=== PATIENT | female | born 1945 | race Caucasian/White ===

== ENCOUNTER → 2016-12-02 | Outpatient (CLI) | payer MEDICARE, BC ==
[2006-01-25 09:55] VITALS: TEMP 97.1
[~2016-12-02] MED LIST: AMOXICILLIN 8751 TAB PO; BISOPROLOL FUMARATE PO; CRESTOR5 MG PO; DIOVAN HCT 25 M1 TA1 PO; ELAVIL100 MG PO; GLUCOPHAGE500 MG/TAB PO; NIACIN500 MG PO; NORVASC 5MG5 MG/TAB PO; TRICOR145 MG PO; VITAMIN D32000 IU PO; ZYRTEC 10MG10 MG PO; fluticasone
== END ==
LOC: COL.RAD 08:56
DX: N39.0 Urinary tract infection, site not specified (principal); N30.20 Other chronic cystitis without hematuria; N28.1 Cyst of kidney, acquired; N13.30 Unspecified hydronephrosis

== ENCOUNTER → 2017-05-26 | Outpatient (CLI) | payer MEDICARE, BC ==
[2006-01-25 09:55] VITALS: TEMP 97.1
== END ==
LOC: MC.RAD 10:55
DX: Z12.31 Encounter for screening mammogram for malignant neoplasm of breast (principal)

== ENCOUNTER 2019-08-20 19:05 | Emergency (ER) | payer MEDICARE, BC ==
[~2019-08-20] VITALS: Ht 162.6 cm; Wt 68.2 kg
[2019-08-20 19:18] VITALS: TEMP 97.4
[2019-08-20 20:06] LABS: BASO # 0.1 (0.0-0.2); BASO % 0.7 % (0.0-2.0); EOS # 0.2 (0.0-0.7); EOS % 2.1 % (0-4.0); GRAN # 5.4 (1.4-6.5); GRAN % 71.9 % (42.2-75.2); HEMATOCRIT 40.4 % (37.0-47.0); HEMOGLOBIN 13.8 g/dl (12.5-16.0); LYMPH # 1.3 (1.2-3.4); LYMPH % 16.8 % (20.0-51.0); MEAN CELL VOLUME 85 fl (80.0-100.0); MEAN CORPUSCULAR HEMOGLOBIN 29 pg (27.0-31.0); MEAN CORPUSCULAR HGB CONC 34 g/dl (33.0-37.0); MEAN PLATELET VOLUME 10.8 fl (7.4-10.4); MONO # 0.6 (0.1-0.6); MONO % 7.8 % (1.7-9.3); PLATELET COUNT 250 K/mm3 (130-400); RED BLOOD COUNT 4.76 M/mm3 (4.10-5.30)
[2019-08-20 20:22] LABS: ALANINE AMINOTRANSFERASE 47 U/L (9-52); ALBUMIN 4.6 gm/dL (3.5-5.0); ALKALINE PHOSPHATASE 62 U/L (50-136); ANION GAP 13 mmol/L (7-16); AST,SGOT 44 U/L (15-37); BILIRUBIN,TOTAL 0.3 mg/dL (0.0-1.0); BLOOD UREA NITROGEN 25 mg/dL (7-17); CALCIUM 9.7 mg/dL (8.4-10.2); CARBON DIOXIDE 27 mmol/L (22-30); CHLORIDE 103 mmol/L (98-107); CREATININE, serum 0.95 (0.52-1.25); GLUCOSE 257 mg/dL (74-106); POTASSIUM 3.2 mmol/L (3.4-5.0); SODIUM 142 mmol/L (137-145); TOTAL PROTEIN 7.5 gm/dL (6.4-8.2)
[2019-08-20 20:28] LABS: C-REACTIVE PROTEIN < 0.5 mg/dL (0.0-0.9)
[2019-08-20] MEDS ORDERED: ZEBETA10 MG PO (20:42)
[2019-08-20] MEDS ORDERED: TRADJENTA5 MG PO (20:43)
[2019-08-20] MEDS ORDERED: BENICAR HCT 251 TAB PO (20:44)
[2019-08-20] MEDS ORDERED: GLUCOPHAGE XR500 M1 PO (20:44)
[2019-08-20 22:14] VITALS: BP 193/91
[2019-08-20 22:53] VITALS: PULSE 72
== END 2019-08-20 22:53 | disposition home or self-care (01) ==
LOC: COL.ER 19:05
PROVIDERS: Family Medicine
DX: K52.9 Noninfective gastroenteritis and colitis, unspecified (principal); R42 Dizziness and giddiness; E11.9 Type 2 diabetes mellitus without complications; I10 Essential (primary) hypertension; Z79.84 Long term (current) use of oral hypoglycemic drugs
CPT/HCPCS: J2405; J7030; J7120

== ENCOUNTER 2020-12-26 17:46 | Inpatient (IN) | payer MEDICARE, BC ==
[~2020-12-26] VITALS: Ht 162.6 cm; Wt 68.0 kg
[~2020-12-26 17:46] MED LIST changes: +BENICAR HCT 251 TAB PO; +GLUCOPHAGE XR500 M1 PO; +TRADJENTA5 MG PO; +ZEBETA10 MG PO
[2020-12-26 18:15] LABS: HEMATOCRIT 40.4 % (37.0-47.0); HEMOGLOBIN 14.1 g/dl (12.5-16.0); MEAN CELL VOLUME 84 fl (80.0-100.0); MEAN CORPUSCULAR HEMOGLOBIN 29 pg (27.0-31.0); MEAN CORPUSCULAR HGB CONC 35 g/dl (33.0-37.0); MEAN PLATELET VOLUME 10.5 fl (7.4-10.4); PLATELET COUNT 205 K/mm3 (130-400); RED BLOOD COUNT 4.81 M/mm3 (4.10-5.30); REDCELL DISTRIBUTION WIDTH-CV 13.1 % (11.5-14.5)
[2020-12-26 18:22] LABS: INR 1.3 (0.8-3.0); PROTHROMBIN TIME 14.8 SECONDS (9.7-12.8)
[2020-12-26 18:28] LABS: ALBUMIN 4.5 gm/dL (3.5-5.0); BILIRUBIN,TOTAL 0.8 mg/dL (0.0-1.0); C-REACTIVE PROTEIN 8.3 mg/dL (0.0-0.9); CALCIUM 9.8 mg/dL (8.4-10.2); CREATININE, serum 0.82 (0.52-1.25); POTASSIUM 3.3 mmol/L (3.4-5.0)
[2020-12-26 18:43] LABS: BAND 8 % (0-10); LYMPHOCYTE 4 % (20.0-51.0); NEUTROPHILS 80 % (42.0-75.2)
[2020-12-26 18:44] LABS: PLATELET ESTIMATE NORMAL (NORMAL)
[2020-12-26 19:55] LABS: COLLECTION METHOD CLEAN CATCH
[2020-12-26 20:22] LABS: MUCOUS Present /lpf; PH 5 (5-8); SQUAMOUS EPITHELIAL 0-2 /hpf; URINE APPEARANCE Hazy; URINE BACTERIA Rare /hpf; URINE BILIRUBIN Negative (NEGATIVE); URINE BLOOD 2+ (NEGATIVE); URINE COLOR Yellow; URINE GLUCOSE 3+ (NEGATIVE); URINE KETONE Trace (NEGATIVE); URINE LEUKOCYTE ESTERASE Negative (NEGATIVE); URINE NITRATE Negative (NEGATIVE); URINE PROTEIN(semi-quant) 3+ (NEGATIVE); URINE UROBILINOGEN Negative (NEGATIVE)
[2020-12-26] MEDS ORDERED: VITAMIN D31000 I1 PO (22:31)
[2020-12-26] MEDS ORDERED: OMEGA-3 1000 MG1 CAP PO (22:31)
[2020-12-26] MEDS ORDERED: VITAMIN FLUSH-F1 CAP PO (22:32)
[2020-12-26 22:59] VITALS: BP 117/70; PULSE 74; TEMP 99
[2020-12-27] VITALS (9 sets, daily range): BP systolic 156–190; BP diastolic 54–84; PULSE 79–103; TEMP 99.8–103
--- NOTE | 2020-12-27 03:38 | NUR ---
Pt came last night accompanied by her son. Pt came pneumonia and it seems like she is more confused then when she got on the floor. She was playing in her left hand, when i asked her what she is doing, she said she, is dialing numbers in her cell phone but there was no cell phone in her hand.VSS will continue to monitor.
[2020-12-27 06:26] LABS: MEAN CELL VOLUME 84 fl (80.0-100.0); MEAN CORPUSCULAR HGB CONC 35 g/dl (33.0-37.0); MEAN PLATELET VOLUME 10.4 fl (7.4-10.4); PLATELET COUNT 166 K/mm3 (130-400); RED BLOOD COUNT 3.94 M/mm3 (4.10-5.30); REDCELL DISTRIBUTION WIDTH-CV 13.2 % (11.5-14.5)
[2020-12-27 06:34] LABS: MEAN CORPUSCULAR HEMOGLOBIN 29 pg (27.0-31.0)
[2020-12-27 06:36] LABS: HEMOGLOBIN 11.4 g/dl (12.5-16.0)
--- NOTE | 2020-12-27 06:36 | NUR ---
Lab has just called to report that the pt hemoglobin dropped from 14.1 to 11.4.
[2020-12-27 06:38] LABS: CALCIUM 8.5 mg/dL (8.4-10.2); CHOLESTEROL RISK RATIO 3.1; CREATININE, serum 0.86 (0.52-1.25); POTASSIUM 3.5 mmol/L (3.4-5.0)
[2020-12-27 07:23] LABS: PLATELET ESTIMATE NORMAL (NORMAL)
[2020-12-27 07:24] LABS: BAND 14 % (0-10); LYMPHOCYTE 1 % (20.0-51.0); NEUTROPHILS 81 % (42.0-75.2)
--- NOTE | 2020-12-27 13:00 | NUR ---
PT RECEIVE CONFUSED. SON AT THE BEDSIDE. PT CALMER WITH FAMILY MEMBER AT THE BEDSIDE. MD AWARE OF PT TEMP AND STATES THEY ARE EXPECTED. TYLENOL ADMINISTERED ORDERED. WILL CONTINUE TO MONITOR.
--- NOTE | 2020-12-27 16:36 | NUR ---
Plan is to return home. SW met with patient. Reports no DME uss PCP Dr. Dalia Sweet, Son Eduar lives next door and they have family support, Prior to this stay patient was independent. Son reports new confusion. [phone] Eduar, open to SKILL. Will follow
[2020-12-27 20:14] LABS: ARTERIAL BLD GAS O2 SATURATION 91.8 % (92-100); ARTERIAL BLD GAS TCO2 CT 25.6; ARTERIAL BLOOD GAS BASE EXCESS 1.5 (-2-2); ARTERIAL BLOOD GAS HCO3 24.5 meq/L (22-26); ARTERIAL BLOOD GAS PCO2 33.7 mmHg (35-45); ARTERIAL BLOOD GAS PO2 55.8 mmHg (80-100); ARTERIAL BLOOD GAS pH 7.48 (7.35-7.45)
--- NOTE | 2020-12-28 02:55 | NUR ---
Pt was not doing well.Her breathing was 40 breath per munites.Rt was in the room with the charge nurse checking on her. Charge nurse called PA to come to check on the pt, she showed up right away. PA ordered steroid, lasix IV push. abg,ct and taylor were also ordered. After i inserted the taylor, pt output was greter than 700 ml.pt is doing better but try to get out of bed sometimes. Her PO meds were held because she was unable to swallow and PA is aware of that.Her temperature is down right now, pt is asleep.Will continue to monitor.
[2020-12-28 04:48] VITALS: BP 138/60; PULSE 74; TEMP 98.4
--- NOTE | 2020-12-28 06:30 | NUR ---
Bedside report recieved from RILEY Quezada. Patient resting in bed upon entering the room. O2 running at 3L via oxy max. Patient denies any pain, discomfort, SOA, or further needs at this time. Will continue to monitor. Call light in reach. Fall precautions in place.
[2020-12-28 07:58] VITALS: BP 107/79; PULSE 79; TEMP 97.9
[2020-12-28 08:23] LABS: HEMOGLOBIN 12.1 g/dl (12.5-16.0); MEAN CELL VOLUME 87 fl (80.0-100.0); MEAN CORPUSCULAR HEMOGLOBIN 29 pg (27.0-31.0); MEAN CORPUSCULAR HGB CONC 34 g/dl (33.0-37.0); MEAN PLATELET VOLUME 11.3 fl (7.4-10.4); PLATELET COUNT 145 K/mm3 (130-400); RED BLOOD COUNT 4.12 M/mm3 (4.10-5.30); REDCELL DISTRIBUTION WIDTH-CV 13.3 % (11.5-14.5)
[2020-12-28 08:29] LABS: HEMATOCRIT 35.7 % (37.0-47.0)
[2020-12-28 08:34] LABS: CALCIUM 8.6 mg/dL (8.4-10.2); CREATININE, serum 0.88 (0.52-1.25); MAGNESIUM 2.2 mg/dL (1.6-2.3); POTASSIUM 3.5 mmol/L (3.4-5.0)
--- NOTE | 2020-12-28 09:00 | NUR ---
Scheduled meds given, shift assessment and neuro checks completed. Ashkan and Tammie held per VITO Austin for a blood pressure of 107/79. Patient A&O*4. VSS. Patient denies any pain, discomfort, or futher needs at this time. O2 running at 3L via oxy mask. Will continue to monitor. Call light in reach. Family at bedside.
[2020-12-28 09:44] LABS: BAND 5 % (0-10); LYMPHOCYTE 5 % (20.0-51.0); NEUTROPHILS 88 % (42.0-75.2)
[2020-12-28 09:46] LABS: PLATELET ESTIMATE NORMAL (NORMAL)
[2020-12-28 12:45] VITALS: BP 141/55; PULSE 73; TEMP 98
[2020-12-28 16:47] VITALS: BP 150/62; PULSE 72; TEMP 97.1
--- NOTE | 2020-12-28 18:09 | NUR ---
Patient has had an ok day. O2 titrated down to 1.5 L via oxy mask. Patient SATing 94-95%. Patient is C/O of a sore throat, Dirk put an order in for cough drops. Patient A&O x4. No agitation noted. Patient has had 700 out per taylor catheter, urine red tinged. Patient denies any pain, discomfort, or futher needs at this time. Will continue to monitor. Call light in reach.
[2020-12-28 19:43] VITALS: BP 166/75; PULSE 77; TEMP 97.5
--- NOTE | 2020-12-28 22:34 | NUR ---
Patient laying in bed upon enter the room. Shift assessment completed. Patient alert and oriented. Patient currently on 1.5L oxygen via oxymask. Patient denies SOB or dyspnea. Recinos catheter in place and draining blood-tinged urine. All scheduled meds given per SEP. Call light within reach. Patient denies any needs at this time.
[2020-12-29] VITALS (538 sets, daily range): BP systolic 109–184; BP diastolic 78–95; PULSE 79–115; TEMP 97.4–100.3; O2SAT 63–99
[2020-12-29 04:56] LABS: ARTERIAL BLD GAS O2 SATURATION 93.3 % (92-100); ARTERIAL BLD GAS TCO2 CT 28.8; ARTERIAL BLOOD GAS BASE EXCESS 5.1 (-2-2); ARTERIAL BLOOD GAS HCO3 27.7 meq/L (22-26); ARTERIAL BLOOD GAS PCO2 34.4 mmHg (35-45); ARTERIAL BLOOD GAS PO2 63.2 mmHg (80-100); ARTERIAL BLOOD GAS pH 7.52 (7.35-7.45)
--- NOTE | 2020-12-29 05:10 | NUR ---
During morning round, noticed patient tachypnic, RR 40, wheezing, and using accesory muscles breathing. SPO2 80-82% on 1.5L via Oxymask at 04:20 am. Notified VITO Bryan immediately. Increased oxygen level to 6L- SPO2 93% on 6L. BP 184/82, HR 102 at this time. Patient A/O x3. Order recieved to give Lasix 20mg IV one dose. Lasix IV given per order. VS- BP 165/82, SPO2 92% on 5L via oxymask, RR 24 at 05:05 am. Call light within reach. Will continue to monitor.
--- NOTE | 2020-12-29 05:38 | NUR ---
Received phone call from Tele unit that patient is having A-fib RVR at 05:20 am. HR ranging 130-165. Notified VITO Bryan. Patient appears confused at this time. SPO2 92% on 5L via oxymask. Recinos output 1650 ml for perfumer.
--- NOTE | 2020-12-29 06:10 | NUR ---
Pt arrived to ICU room 2 via bed with RILEY Mosley. Pt transferred from the floor bed to the ICU bed with the assistance of 3. Attepted to orient to room and call light system but pt is partially confused. Call light within reach.
[2020-12-29 06:23] LABS: HEMATOCRIT 38.1 % (37.0-47.0); HEMOGLOBIN 13.2 g/dl (12.5-16.0); MEAN CELL VOLUME 84 fl (80.0-100.0); MEAN CORPUSCULAR HEMOGLOBIN 29 pg (27.0-31.0); MEAN CORPUSCULAR HGB CONC 35 g/dl (33.0-37.0); MEAN PLATELET VOLUME 11.2 fl (7.4-10.4); PLATELET COUNT 187 K/mm3 (130-400); RED BLOOD COUNT 4.55 M/mm3 (4.10-5.30); REDCELL DISTRIBUTION WIDTH-CV 13.2 % (11.5-14.5)
[2020-12-29 06:42] LABS: CALCIUM 9.3 mg/dL (8.4-10.2); CREATININE, serum 0.74 (0.52-1.25); POTASSIUM 3.9 mmol/L (3.4-5.0)
--- NOTE | 2020-12-29 07:21 | NUR ---
Bedside shift report given to RILEY Mckenzie.
--- NOTE | 2020-12-29 11:05 | NUR ---
PT is recommending IPR. CARLENE met with the patient and her daughter, Hakan Cedillo (ph#[phone]), to introduce oneself and to discuss therapy's recommendation. Hakan reports that her [id number] is a doctor and she would like to have him updated, since he understands what is going on more them her and her brother. SW informed her that if he is here or if they wanted to have him on speaker phone during rounds, then we could update him then. SW inquired about a DPOA-HC. The patient reports that she does not have one completed, but would like to go ahead and complete one while here. The patient verbalized what a DPOA-HC means and that she wants to designate her son, Eduar, and her daughter, Hakan, as her DPOA-HC. ST was present during this conversation. SW and ST witnessed the patient's signature. SW provided Hakan with the original and some copies. SW placed a copy in the patient's chart. ST was then performing her evaluation. SW to follow up with the patient and her daughter at a later time to discuss therapy's recommendaton. The patient is to have an EEG, ECHO, and MRI today.
--- NOTE | 2020-12-29 13:26 | NUR ---
SW followed up with the patient, her son (Eduar), and daughter (Hakan) about therapy's recommendation for IPR. The patient's family was supportive of post-acute rehab and the patient was also agreeable. SW provided the patient's family with Medicare.gov's list of SNFs in the [facility]. The patient's son and daughter were unsure if they would want to pursue IPR. Their first preference is [facility]. The patient and her son report that they are thinking [facility] as their second preference, but are not certain yet. The patient's daughter would like some more time to look over the list. They were agreeable for SW to send the referral to [facility]. CARLENE contacted and faxed a referral to [facility] and [facility]. Awaiting screens. *Disharge plan: SNF, awaiting screens*
--- NOTE | 2020-12-29 20:00 | NUR ---
Assessment complete. Pt is intermittently condused. She is picking at wires and continues to take off her oxygen. Pt freuqently reoriented. Pt repositioned in bed. Call light within reach.
[2020-12-30] VITALS (399 sets, daily range): BP systolic 133–163; BP diastolic 84–110; PULSE 80–110; TEMP 98.4–99.6; O2SAT 76–100
[2020-12-30 06:06] LABS: BASO % 0.3 % (0.0-2.0); EOS % 0.3 % (0-4.0); GRAN # 5.8 (1.4-6.5); GRAN % 75.9 % (42.2-75.2); LYMPH # 0.7 (1.2-3.4); LYMPH % 9.6 % (20.0-51.0); MEAN CELL VOLUME 85 fl (80.0-100.0); MEAN CORPUSCULAR HEMOGLOBIN 29 pg (27.0-31.0); MEAN CORPUSCULAR HGB CONC 34 g/dl (33.0-37.0); MEAN PLATELET VOLUME 11.5 fl (7.4-10.4); MONO % 12.7 % (1.7-9.3); PLATELET COUNT 165 K/mm3 (130-400); RED BLOOD COUNT 4.47 M/mm3 (4.10-5.30); REDCELL DISTRIBUTION WIDTH-CV 13.2 % (11.5-14.5)
[2020-12-30 06:20] LABS: CALCIUM 9.2 mg/dL (8.4-10.2); CREATININE, serum 0.74 (0.52-1.25); POTASSIUM 3.4 mmol/L (3.4-5.0)
--- NOTE | 2020-12-30 07:32 | NUR ---
Bedside shift report given to RILEY Mckenzie.
--- NOTE | 2020-12-30 08:23 | NUR ---
Aislinn, at [facility], reports that the patient will just need to be stable off of high flow oxygen and that they will need to know more about her lung condition. She states then they should be good to accept following that.
--- NOTE | 2020-12-30 13:52 | NUR ---
Initial visit; Patient thanked Isotope Technologist for looking in on her and offering God's blessings. Isotope Technologist will follow up, patient overwhelmed with too much activity at this time.
--- NOTE | 2020-12-30 20:00 | NUR ---
Assessment complete. Pt is AXO X3 tonight and she denies having any pain at this time. Pt is sitting up in the bed watching TV at this time and she denies further needs. Call light within reach.
[2020-12-31] VITALS (980 sets, daily range): BP systolic 107–168; BP diastolic 66–103; PULSE 82–95; TEMP 97.6–99.8; O2SAT 73–100
[2020-12-31 05:05] LABS: HEMATOCRIT 39.9 % (37.0-47.0); HEMOGLOBIN 13.9 g/dl (12.5-16.0); MEAN CELL VOLUME 84 fl (80.0-100.0); MEAN CORPUSCULAR HEMOGLOBIN 29 pg (27.0-31.0); MEAN CORPUSCULAR HGB CONC 35 g/dl (33.0-37.0); MEAN PLATELET VOLUME 11.5 fl (7.4-10.4); PLATELET COUNT 216 K/mm3 (130-400); RED BLOOD COUNT 4.76 M/mm3 (4.10-5.30)
[2020-12-31 05:18] LABS: CALCIUM 10.2 mg/dL (8.4-10.2); CREATININE, serum 0.81 (0.52-1.25); POTASSIUM 4.1 mmol/L (3.4-5.0)
[2020-12-31 05:23] LABS: ANISOCYTOSIS 1+; BAND 2 % (0-10); EOSINOPHIL 1 % (0-4); HYPOCHROMIA 2+; LYMPHOCYTE 15 % (20.0-51.0); METAMYELOCYTE 4 % (0-0); NEUTROPHILS 71 % (42.0-75.2); PLATELET ESTIMATE NORMAL (NORMAL)
--- NOTE | 2020-12-31 07:19 | NUR ---
Bedside shift report given to RILEY Hernandez.
--- NOTE | 2020-12-31 10:00 | NUR ---
MRI notified of patients new MRA orders.
--- NOTE | 2020-12-31 14:51 | NUR ---
The hospitalist notified CARLENE that the patient may be able to d/c tomorrow or Tuesday. The patient's son, Eduar, contacted CARLENE. Eduar reports that him and the patient have been talking more and they now prefer IPR. CARLENE informed Eduar of the tentative d/c date. Eduar was in agreement to the plan. CARLENE notified Swati, IPR Director. CARLENE contacted and faxed updates to [facility] and [facility]. *Discharge plan: IPR vs SNF*
--- NOTE | 2020-12-31 16:18 | NUR ---
Aislinn, at [facility], reports that they are able to accept the patient for a skilled stay.
--- NOTE | 2020-12-31 20:00 | NUR ---
Assessment complete. Pt is AXO X3, denies having any pain at this time. Pt is sitting up in the chair watching TV at this time and she denies further needs. Call light within reach.
[2021-01-01] VITALS (13 sets, daily range): BP systolic 122–149; BP diastolic 65–74; PULSE 72–99; TEMP 97.6–98.3; O2SAT 92–94
--- NOTE | 2021-01-01 00:47 | NUR ---
Patient came up on the floor from ICU at 0030. She is awake, alert and oriented. She gets up 1 assist to go the bathroom She is having productive dry cough. She karolyn pain or SOB. She have scattered bruising and 2x scabs in her right butt cheek.She is continent with briefs on. Call light within reach and bed alarm is on. She is resting comfortably in bed. Continue to monitor.
--- NOTE | 2021-01-01 06:13 | NUR ---
Unable to get the weights for Bed is not working for weighing.
[2021-01-01 06:54] LABS: CALCIUM 9.8 mg/dL (8.4-10.2); CREATININE, serum 0.83 (0.52-1.25); POTASSIUM 3.8 mmol/L (3.4-5.0)
[2021-01-01 06:59] LABS: HEMATOCRIT 40.4 % (37.0-47.0); HEMOGLOBIN 13.9 g/dl (12.5-16.0); MEAN CELL VOLUME 85 fl (80.0-100.0); MEAN CORPUSCULAR HEMOGLOBIN 29 pg (27.0-31.0); MEAN CORPUSCULAR HGB CONC 34 g/dl (33.0-37.0); MEAN PLATELET VOLUME 11.4 fl (7.4-10.4); PLATELET COUNT 294 K/mm3 (130-400); RED BLOOD COUNT 4.78 M/mm3 (4.10-5.30); REDCELL DISTRIBUTION WIDTH-CV 13.1 % (11.5-14.5)
[2021-01-01 08:00] LABS: BAND 3 % (0-10); EOSINOPHIL 2 % (0-4); LYMPHOCYTE 17 % (20.0-51.0); METAMYELOCYTE 2 % (0-0); NEUTROPHILS 67 % (42.0-75.2); PLATELET ESTIMATE NORMAL (NORMAL)
[2021-01-01] MEDS ORDERED: ELIQUIS 5MG PO (11:50)
[2021-01-01] MEDS ORDERED: LANOXIN 0.25M0.25 MG PO (11:50)
[2021-01-01] MEDS ORDERED: OMNICEF 300MG300 MG PO (11:50)
[2021-01-01] MEDS ORDERED: TOPROL XL200 MG PO (11:51)
[2021-01-01] MEDS ORDERED: COZAAR 50MG50 MG/TAB PO (11:51)
[2021-01-01] MEDS ORDERED: LASIX 20MG TABL20 MG PO (11:52)
[2021-01-01] MEDS ORDERED: ASPIRIN E.C. 8181 MG PO (11:52)
[2021-01-01] MEDS ORDERED: MAG-OX 400400 MG/TAB PO (11:52)
--- NOTE | 2021-01-01 12:54 | NUR ---
Patient to discharge to [facility] today, no additional needs at this time.
== END 2021-01-01 14:00 | DRG 871 ==
LOC: COL.ER 17:46 → MEDICAL 20:52 → ICU 12-29 06:04 → MEDICAL 01-01 00:38 → ICU 01-01 00:38 → MEDICAL 01-01 14:00
PROVIDERS: Family Medicine; Internal Medicine; Physician Assistant; Student in an Organized Health Care Education/Training Program; ADMIT Hospitalist
PROC: 4A03X5D Measurement of Arterial Flow, Intracranial, External Approach (ICD-10-PCS; principal; 2020-12-31)
DX: A41.9 Sepsis, unspecified organism (principal); J18.9 Pneumonia, unspecified organism; J96.01 Acute respiratory failure with hypoxia; G93.41 Metabolic encephalopathy; I50.23 Acute on chronic systolic (congestive) heart failure; G45.9 Transient cerebral ischemic attack, unspecified; R47.01 Aphasia; I42.9 Cardiomyopathy, unspecified; E87.70 Fluid overload, unspecified; I48.91 Unspecified atrial fibrillation; E11.9 Type 2 diabetes mellitus without complications; I11.0 Hypertensive heart disease with heart failure; E87.6 Hypokalemia; E83.42 Hypomagnesemia; E78.5 Hyperlipidemia, unspecified; E04.1 Nontoxic single thyroid nodule
CPT/HCPCS: 99223-AI; 99232-AI; 99233-AI; 99239; A9585; J0282; J0456; J0696; J1160; J1650; J1815; J1940; J2060; J2405; J2930; J3475; J7030; J7050; J7060; Q9967

== ENCOUNTER 2021-01-01 12:38 | Inpatient (IN) | payer MEDICARE, BC ==
[~2021-01-01] VITALS: Ht 162.6 cm; Wt 69.0 kg
[~2021-01-01 12:38] MED LIST changes: +ASPIRIN E.C. 8181 MG PO; +COZAAR 50MG50 MG/TAB PO; +ELIQUIS 5MG PO; +LANOXIN 0.25M0.25 MG PO; +LASIX 20MG TABL20 MG PO; +MAG-OX 400400 MG/TAB PO; +OMEGA-3 1000 MG1 CAP PO; +OMNICEF 300MG300 MG PO; +TOPROL XL200 MG PO; +VITAMIN D31000 I1 PO; +VITAMIN FLUSH-F1 CAP PO
[2021-01-01 16:53] VITALS: BP 151/81; PULSE 87; TEMP 98.6
--- NOTE | 2021-01-01 18:10 | NUR ---
Patient arrived from medical to room via wheelchair. Patient is alert and oriented, answers questions appropriately. Patient has not demonstrated herself to be impulsive, has verbalized understanding after education provided to use call light when she has needs or to move from bed. Patient denies needs at this time, bed alarm on, call light within reach.
--- NOTE | 2021-01-01 21:00 | NUR ---
PT RESTING IN BED. HAS SORE THROAT- SL RED. PT ALERT AND ORIENTED.
[2021-01-02 05:10] VITALS: BP 146/77; PULSE 75; TEMP 98
--- NOTE | 2021-01-02 09:07 | NUR ---
Patient was A&O x 4 and sitting in recliner eating breakfast and visiting with her son Eduar. Call light is within reach. Will continue to monitor.
--- NOTE | 2021-01-02 10:45 | NUR ---
Recieved call from Dr. Van's office with new orders to start tele to monitor for new medication started. Approved for not starting an IV at this time due to hard stick.
[2021-01-02 12:04] VITALS: BP 112/53; PULSE 75; TEMP 97.8
--- NOTE | 2021-01-02 14:58 | NUR ---
CARLENE met with the patient and her son, Eduar (ph#[phone]), to introduce oneself and to complete intake. The patient lives alone in [place]. Eduar lives nearby her. She reports independence with ADLs before hospitalization and does not have any DME. The patient's PCP is Dr. Dalia Garcia and she receives her medications from [facility]. The patient's DPOA-HC is in EMR and it designates her son, Eduar, and daughter, Hakan. Hakan lives in [place]. CARLENE to continue to follow.
--- NOTE | 2021-01-02 15:59 | NUR ---
THIS NURSE WAS INFORMED BY PATIENT'S SON SHE WOULD BE KEEPING HER TABLET AND PHONE WITH HER DURING HER STAY. PATIENT IS RESTING COMFORTABLY IN BED AFTER VISITING WITH SON. ALL THERAPY IS COMPLETE.
[2021-01-02 16:00] VITALS: BP 141/60; PULSE 59; TEMP 97.9
[2021-01-02 16:29] VITALS: BP 141/60; PULSE 59; TEMP 97.9
--- NOTE | 2021-01-02 19:10 | NUR ---
RECEIVED CHANGE OF SHIFT REPORT FROM DAY SHIFT NURSE. BED ALARM ON. PATIENT DENIES ANY NEEDS AT THIS TIME.
[2021-01-02 20:08] VITALS: BP 135/51; PULSE 59; TEMP 97.8
--- NOTE | 2021-01-02 20:30 | NUR ---
DENIES CHEST PAIN/SOA AT THIS TIME. DENIES ANY DISCOMFORT AT THIS TIME. BED ALARM ON WHEN IN BED.
[2021-01-02 23:55] VITALS: BP 149/54; PULSE 55; TEMP 98
--- NOTE | 2021-01-03 00:15 | NUR ---
DENIES ANY NEEDS AT THIS TIME. BED ALARM CONTINUES. TELE IN PLACE.
[2021-01-03 04:12] VITALS: BP 156/56; PULSE 56; TEMP 98.6
--- NOTE | 2021-01-03 04:19 | NUR ---
DENIES URGE TO VOID. TELE IN PLACE. BED ALARM ON.
--- NOTE | 2021-01-03 06:52 | NUR ---
CHANGE OF SHIFT REPORT GIVEN TO DAY SHIFT NURSE, ARDEN LIN.
--- NOTE | 2021-01-03 08:47 | NUR ---
PT A/O X4, EATING DRINKING WITH NO N/V. SON AT BEDSIDE. VSS, ASSESSMENTS WNL.
[2021-01-03 09:10] VITALS: BP 144/55; PULSE 57; TEMP 97.2
[2021-01-03 12:50] VITALS: BP 144/49; PULSE 66; TEMP 97.7
--- NOTE | 2021-01-03 18:50 | NUR ---
RECEIVED CHANGE OF SHIFT REPORT FROM DAY SHIFT NURSE. BED ALARM ON WHILE IN BED.
[2021-01-03 19:53] VITALS: BP 155/57; PULSE 63; TEMP 98.8
--- NOTE | 2021-01-03 20:00 | NUR ---
DENIES CHEST PAIN/SOA AT THIS TIME. DENIES ANY DISCOMFORT TO EXTREMITIES. TELE IN PLACE. BED ALARM WHEN IN BED.
--- NOTE | 2021-01-03 23:12 | NUR ---
PATIENT SLEEPING, DOES NOT WAKE WHEN DOOR TO ROOM IS OPENED BY STAFF. BREATHING NONLABORED/EVEN. BED ALARM ON.
[2021-01-04] VITALS (7 sets, daily range): BP systolic 147–170; BP diastolic 46–70; PULSE 54–62; TEMP 97.3–98.5
--- NOTE | 2021-01-04 02:26 | NUR ---
PATIENT SLEEPING, DOES NOT WAKE WHEN STAFF ENTERS ROOM, BREATHING NONLABORED AND EVEN. BED ALARM ON.
--- NOTE | 2021-01-04 06:24 | NUR ---
PATIENT DENIES ANY NEEDS OR CONCERNS AT THIS TIME. BED ALARM ON.
[2021-01-04 06:44] LABS: ALBUMIN 3.2 gm/dL (3.5-5.0); BILIRUBIN,TOTAL 0.5 mg/dL (0.0-1.0); CALCIUM 9.4 mg/dL (8.4-10.2); CREATININE, serum 1.12 (0.52-1.25); MAGNESIUM 2.4 mg/dL (1.6-2.3); POTASSIUM 4.2 mmol/L (3.4-5.0); TOTAL PROTEIN 6.3 gm/dL (6.4-8.2)
--- NOTE | 2021-01-04 07:10 | NUR ---
CHANGE OF SHIFT REPORT GIVEN TO DAY SHIFT NURSE, ARDEN LIN.
[2021-01-04 07:30] LABS: TSH w REFLEX 3.01 uIU/mL (0.465-4.680)
--- NOTE | 2021-01-04 09:34 | NUR ---
PT UP IN BED EATING BREAKFAST, VSS, ASSESSMENTS COMPLETE. PATIENT TOLERATING PO INTAKE WELL. PT'S FAMILY AT BEDSIDE.
--- NOTE | 2021-01-04 18:25 | NUR ---
RECEIVED CHANGE OF SHIFT REPORT FROM DAY SHIFT NURSE. BED ALARM ON.
--- NOTE | 2021-01-04 19:57 | NUR ---
DENIES CHEST PAIN/SOA. REPORTED HAD BM TODAY, NO DIARRHEA REPORTED. BED ALARM ON. TELE IN PLACE.
[2021-01-05 03:58] VITALS: BP 150/64; PULSE 58; TEMP 97.5
--- NOTE | 2021-01-05 07:06 | NUR ---
CHANGE OF SHIFT REPORT GIVEN TO DAY SHIFT NURSE, IWONA LIN.
[2021-01-05 07:10] LABS: CALCIUM 9.8 mg/dL (8.4-10.2); CREATININE, serum 1.23 (0.52-1.25); POTASSIUM 4.3 mmol/L (3.4-5.0)
[2021-01-05 07:33] VITALS: BP 178/64; PULSE 61; TEMP 97.4
--- NOTE | 2021-01-05 10:46 | NUR ---
Patient resting in bed, call light in reach and bed alarm set. Patient taking a nap inbetween therapies. Will continue to monitor.
[2021-01-05 11:59] VITALS: BP 131/46; PULSE 58; TEMP 97.6
--- NOTE | 2021-01-05 13:07 | NUR ---
Admission QIM scores were reviewed by the team. Code of 3 chosen for shower/bathe self was determined by team discussion to be the most usual performance for this patient during the assessment period. Code of 3 for sit to stand was determined by team discussion to be the most usual performance for this patient during the assessment period.--Swati Mcqueen, PD
--- NOTE | 2021-01-05 14:43 | NUR ---
SW attempted to meet with the patient to follow up after the weekend. The patient was sound asleep.
--- NOTE | 2021-01-05 15:26 | NUR ---
Patient attended all therapies this shift. See new orders to DC Tele per Dr. Magallanes.
[2021-01-05 16:48] VITALS: BP 156/53; PULSE 57; TEMP 98.1
[2021-01-05 19:37] VITALS: BP 175/54; PULSE 57; TEMP 97.8
--- NOTE | 2021-01-05 20:38 | NUR ---
Jaye is awake, alert and oriented. She have a friend at bedside. She is resting comfortably in bed without any issues. She denies pain or SOB. She swallowed her pills good too. She is reday to sleep as what she said. Friend left after she swallowed her pills. She said it's been a long day and she is ready to get rest. Continue to monitor.
[2021-01-05 23:28] VITALS: BP 160/56; PULSE 60; TEMP 97.7
[2021-01-06 04:45] VITALS: BP 158/61; PULSE 74; TEMP 97.4
[2021-01-06 17:11] VITALS: BP 174/61; PULSE 62; TEMP 97.7
--- NOTE | 2021-01-06 17:41 | NUR ---
Patient resting in bed at this time. Patient is alert and oriented, answers questions appropriately. Patient has continued to deny pain today. Assessment completed by orientee, agree with her charted assessment. Denies further needs, call light within reach.
--- NOTE | 2021-01-06 19:43 | NUR ---
RECEIVED CHANGE OF SHIFT REPORT FROM DAY SHIFT NURSE.
[2021-01-07 03:40] VITALS: BP 164/57; PULSE 61; TEMP 98
--- NOTE | 2021-01-07 07:10 | NUR ---
CHANGE OF SHIFT REPORT GIVEN TO DAY SHIFT NURSE, LETICIA RN AND AWILDA RN. PATIENT SLEPT FOR MAJORITY OF NIGHT, BED ALARM ON WHEN IN BED. DENIED ANY NEEDS OR CONCERNS THROUGHOUT NIGHT.
--- NOTE | 2021-01-07 08:55 | NUR ---
Received report from RILEY Quijano. Patient is resting comfortable in bed and denies any pain at this time. Patient requested to go to bathroom. This nurse assisted patient and reminded patient to use her walker properly while ambulating. Patient is now resting in recliner. Patient denies pain at this time. Call light and bedside table are within reach. Will continue to monitor patient throughout shift.
--- NOTE | 2021-01-07 14:41 | NUR ---
Team Conference was today. CARLENE contacted the patient's son, Eduar, to review the team's recommendation for a d/c this Tuesday, 01/09, with outpatient PT/ST. Eduar was in agreement to the plan and on receiving the outpatient therapy at [facility]. A patient/family meeting was scheduled for tomorrow at 1300. CARLENE notified IPR Director. CARLENE attempted to contact [facility] to schedule appointments. CARLENE left them a voicemail.
--- NOTE | 2021-01-07 16:19 | NUR ---
Patient was made MOD I in room. Patient understands she is able to move around in room without having to call for or assistant. Will continue to monitor patient throughout shift.
--- NOTE | 2021-01-07 16:22 | NUR ---
Patient currently resting in bed, visitor at bedside. Patient is alert and oriented, answers questions appropriately. Patient has denied pain or needs today, transfers and ambulates with a steady, strong gait and a SBA. PT made patient independent in her room today and patient has denied further needs. Call light within reach.
[2021-01-07 17:39] VITALS: BP 157/52; PULSE 67; TEMP 98.3
--- NOTE | 2021-01-07 18:45 | NUR ---
RECEIVED CHANGE OF SHIFT REPORT FROM DAY SHIFT NURSE.
[2021-01-08 05:24] VITALS: BP 175/61; PULSE 66; TEMP 98.2
--- NOTE | 2021-01-08 06:56 | NUR ---
CHANGE OF SHIFT REPORT GIVEN TO DAY SHIFT NURSE, AWILDA LIN. PATIENT UP IN ROOM PER SELF WITH NO REPORTED PROBLEMS OR CONCERNS. DENIED ANY COMPLAINTS OR NEEDS THROUGH OUT NIGHT.
--- NOTE | 2021-01-08 09:49 | NUR ---
Received report from RILEY Quijano. Sumeet is resting comfortably in bed. Patient denies pain at this time. Call light and bedside table are within reach. Will continue to monitor patient throughout shift.
--- NOTE | 2021-01-08 14:23 | NUR ---
SW attended the patient/family meeting. The patient's son, Eduar, and his were at beside. Also present was IPR Director, PT, OT, and ST. IPR Director started by explaining the purpose of the meeting. PT/OT/ST the discussed the patient's progress so far and confirmed the d/c date for tomorrow, 01/09, with outpatient PT/ST. The patient and her family were agreeable to the plan. The team answered all questions. CARLENE contacted [facility] and secured the patient an outpatient PT appointment on 01/13 at [address] appointment on 01/20 at 1300. CARLENE informed the patient's RN of the appointments. CARLENE will need to fax the patient's d/c orders to [facility].
[2021-01-08 18:04] VITALS: BP 148/50; PULSE 64; TEMP 98.3
--- NOTE | 2021-01-08 19:16 | NUR ---
Gave report to RILEY Duran. Patient is resting comfortably in bed. Call light and bedside table are within reach
--- NOTE | 2021-01-08 20:00 | NUR ---
SITTING IN CHAIR. MOD I IN ROOM. DENIES NEEDS. CALL LIGHT IN REACH.
[2021-01-09 05:18] VITALS: BP 155/52; PULSE 61; TEMP 97.5
--- NOTE | 2021-01-09 08:56 | NUR ---
Assessment completed, alert/oriented, denies pain, plans for discharge today, no therapy scheduled
[2021-01-09] MEDS ORDERED: ELIQUIS 5MG PO (10:41)
[2021-01-09] MEDS ORDERED: JANUVIA 100MG100 MG PO (10:41)
[2021-01-09] MEDS ORDERED: COZAAR100 MG PO (10:42)
[2021-01-09] MEDS ORDERED: COREG12.5 MG PO (10:44)
[2021-01-09] MEDS ORDERED: NORVASC 10MG10 MG PO (10:44)
[2021-01-09] MEDS ORDERED: CORDARONE200 MG/TAB PO (10:47)
--- NOTE | 2021-01-09 11:15 | NUR ---
The patient is to discharge back home today, 01/09, with outpatient PT/ST at [facility]. CARLENE met with the patient and presented and read the IM form outloud to her. The patient verbalized understanding and signed the form. CARLENE provided her with a copy. CARLENE faxed the patient's orders to [facility]. No additional needs at this time.
--- NOTE | 2021-01-09 13:12 | NUR ---
discharge orders discussed with the patient, instructed to follow up with PCP/Cards/neuro/ as scheduled, instructed to go to PT/OT and scheudled, instructed to have Thyroid US as scheduled, discussed all new meds and med changes, scripts sent to pharmacy for her, she is leaving with her son, Benito, BELKYS escorted her out by wheelchair
== END 2021-01-09 13:15 | disposition home or self-care (01) | DRG 193 ==
PROVIDERS: Internal Medicine Adult Congenital Heart Disease; ADMIT Internal Medicine
DX: J18.1 Lobar pneumonia, unspecified organism (principal); G93.41 Metabolic encephalopathy; J96.01 Acute respiratory failure with hypoxia; I50.21 Acute systolic (congestive) heart failure; R47.01 Aphasia; I42.9 Cardiomyopathy, unspecified; E87.3 Alkalosis; I48.91 Unspecified atrial fibrillation; I11.0 Hypertensive heart disease with heart failure; E04.1 Nontoxic single thyroid nodule; E83.42 Hypomagnesemia; E11.9 Type 2 diabetes mellitus without complications; J02.9 Acute pharyngitis, unspecified; E87.6 Hypokalemia; I65.29 Occlusion and stenosis of unspecified carotid artery; R26.89 Other abnormalities of gait and mobility; E78.5 Hyperlipidemia, unspecified; Z73.6 Limitation of activities due to disability; Z79.84 Long term (current) use of oral hypoglycemic drugs; Z79.01 Long term (current) use of anticoagulants; Z79.82 Long term (current) use of aspirin; Z79.899 Other long term (current) drug therapy; Z86.73 Personal history of transient ischemic attack (TIA), and cerebral infarction without residual deficits; Z88.2 Allergy status to sulfonamides
CPT/HCPCS: 99222-AI; 99231-AI; 99232-AI; 99239

== ENCOUNTER → 2021-01-28 | Outpatient (CLI) | payer MEDICARE, BC ==
[~2021-01-28] MED LIST changes: +CORDARONE200 MG/TAB PO; +COREG12.5 MG PO; +COZAAR100 MG PO; +JANUVIA 100MG100 MG PO; +NORVASC 10MG10 MG PO
== END ==
LOC: COL.RAD 01-21 13:30
DX: E03.9 Hypothyroidism, unspecified (principal); E04.2 Nontoxic multinodular goiter; I10 Essential (primary) hypertension; E11.9 Type 2 diabetes mellitus without complications

== ENCOUNTER 2021-03-03 08:45 | Outpatient (RCR) | payer MEDICARE, BC | END 2021-03-03 14:27 | disposition home or self-care (01) | LOC: MKS.ESL.PT 08:45 | DX: G93.40 Encephalopathy, unspecified (principal) ==

== ENCOUNTER 2021-05-13 16:00 | Outpatient (RCR) | payer MEDICARE, BC | END 2021-07-17 | disposition home or self-care (01) | LOC: MKS.ESL.OT | DX: R41.89 Other symptoms and signs involving cognitive functions and awareness (principal) ==

== ENCOUNTER → 2022-03-09 | Outpatient (CLI) | payer MEDICARE, BC | LOC: COL.RAD 07:43 | DX: N28.1 Cyst of kidney, acquired (principal); R31.29 Other microscopic hematuria | CPT/HCPCS: Q9967 ==